=== PATIENT | female | born 1960 | race Caucasian/White ===

== ENCOUNTER 2016-10-12 17:56 | Inpatient (IN) | payer MEDICARE ==
[~2016-10-12] VITALS: Ht 165.1 cm; Wt 39.9 kg
[~2016-10-12 17:56] MED LIST: HYDROCODONE-APA1 TAB PO; KLONOPIN0.5 MG PO; ZANAFLEX4 MG PO
[2016-10-12 18:33] LABS: BASOPHILS 0.3 % (0.0-2.0); EOSINOPHILS 0.7 % (0-7); HEMATOCRIT 31.5 % (36.0-48.0); HEMOGLOBIN 10.2 g/dL (12-16); IMMATURE GRANULOCYTES 0.5 % (0-5); LYMPHOCYTES 14.7 % (15-50); MCH 28.1 pg (26.0-34.0); MCHC 32.4 g/dL (31.0-37.0); MCV 86.8 fL (80.0-100.0); MEAN PLATELET VOLUME 9.2 fL (7.4-10.4); MONOCYTES 13.6 % (2-11); NEUTROPHILS 70.2 % (40-80); RBC 3.63 10x6/uL (4.00-5.40); RDW 16.4 % (11.5-14.5); WBC 12.5 10x3/uL (4.8-10.8)
[2016-10-12 18:41] LABS: PLATELET COUNT 347 10x3/uL (130-400)
[2016-10-12 19:24] LABS: ALBUMIN 2.6 g/dL (3.4-5.0); BILIRUBIN - TOTAL 0.51 mg/dL (0.2-1.3); CALCIUM 8.1 mg/dL (8.5-10.1); CARBON DIOXIDE 26.7 mmol/L (21.0-32.0); CREATININE - SERUM 0.9 mg/dL (0.6-1.3); POTASSIUM - SERUM 3.7 mmol/L (3.5-5.1); PROTEIN - SERUM 6.8 g/dL (6.4-8.2)
[2016-10-12 21:53] LABS: APPEARANCE CLEAR (CLEAR); BILIRUBIN NEGATIVE (NEGATIVE); COLOR YELLOW (YELLOW); GLUCOSE NEGATIVE (NEGATIVE); KETONE NEGATIVE (NEGATIVE); LEUKOCYTE ESTERASE NEGATIVE (NEGATIVE); NITRITE NEGATIVE (NEGATIVE); PROTEIN NEGATIVE (NEGATIVE); UROBILINOGEN NORMAL (NORMAL)
--- NOTE | 2016-10-12 22:10 | NUR ---
RECEIVED PATIENT TO ROOM IN STABLE CONDITION. ALERT AND ORIENTED AND ABLE TO VOICE NEEDS. ORIENTED TO ROOM AND USE OF CALL LIGHT. FAMILY PRESENT. CALL LIGHT IN REACH
[2016-10-12 23:00] VITALS: BP 101/56
[2016-10-12 23:11] VITALS: BP 101/56; BMI 14.6
--- NOTE | 2016-10-12 23:37 | NUR ---
RN NOTE: ADMISSION ASSESSMENT COMPLETE. PT LYING IN SUPINE POSITION VISITING WITH FAMILY MEMBERS. IV IN RIGHT AC PATENT WITH D5 LR INFUSING AT 100 ML / HR. WILL MONITOR CLOSLEY FOR NEEDS.
[2016-10-13] VITALS (10 sets, daily range): BP systolic 91–114; BP diastolic 50–66; Ht 165.1 cm; Wt 39.9 kg
[2016-10-13 05:22] LABS: BASOPHILS 0.2 % (0.0-2.0); EOSINOPHILS 0.6 % (0-7); HEMATOCRIT 29.1 % (36.0-48.0); HEMOGLOBIN 9.3 g/dL (12-16); IMMATURE GRANULOCYTES 0.5 % (0-5); MCH 27.6 pg (26.0-34.0); MCV 86.4 fL (80.0-100.0); MEAN PLATELET VOLUME 9.4 fL (7.4-10.4); MONOCYTES 12.7 % (2-11); PLATELET COUNT 307 10x3/uL (130-400); RBC 3.37 10x6/uL (4.00-5.40); RDW 16.2 % (11.5-14.5); WBC 11.9 10x3/uL (4.8-10.8)
[2016-10-13 05:29] LABS: APTT 38.3 SECONDS (22.8-39.4); INR 1.39 (0.85-1.17)
[2016-10-13 05:39] LABS: ALKALINE PHOSPHATASE 151 U/L (46-116); CALCIUM 7.9 mg/dL (8.5-10.1); CARBON DIOXIDE 24.3 mmol/L (21.0-32.0); CHLORIDE - SERUM 103 mmol/L (98-107); CREATININE - SERUM 0.7 mg/dL (0.6-1.3); GLUCOSE 109 mg/dL (74-106); POTASSIUM - SERUM 3.8 mmol/L (3.5-5.1); PROTEIN - SERUM 6.3 g/dL (6.4-8.2); SODIUM 136 mmol/L (136-145); eGFR NON AFRICAN AMERICAN > 90 mL/min (90-120)
[2016-10-13 05:41] LABS: ALBUMIN 1.9 g/dL (3.4-5.0); ALT (SGPT) 27 U/L (10-68); CALC OSMOLALITY 270 mosm/kg (275-300); UREA NITROGEN 7 mg/dL (7-18)
--- NOTE | 2016-10-13 08:00 | NUR ---
AWAKE AND ALERT. ORIENTED X3. REPORTS VERY LITTLE RELIEF OF PAIN WITH MORPHINE. WILL CONTINUE TO MONITOR. LUNGS ARE CLEAR BILATERALLY, NO COUGH NOTED. SKIN IS INTACT WITHOUT REDNESS. UP TO BR WITH SBA. VOIDED CLEAR YELLOW URINE WITHOUT DIFFICULTY. SKIN CARE PER SELF. IV TO RIGHT AC IS PATENT WITHOUT REDNESS AT INSERTION SITE. VISITOR AT BEDSIDE.
--- NOTE | 2016-10-13 09:00 | NUR ---
DR. MICHELE HERE. NEW ORDERS RECEIVED. MORPHINE RESORT HOST PUT IN PLACE AT THIS TIME.. WILL MONITOR.
--- NOTE | 2016-10-13 10:00 | NUR ---
REPORTS PAIN IMPROVED SLIGHTLY WITH USE OF PODIATRIC PHYSICIAN.
--- NOTE | 2016-10-13 11:00 | NUR ---
CONTINUES TO REPORT IMPROVEMENT OF PAIN MANAGEMENT WITH USE OF PRINTED CIRCUIT BOARD DESIGNER.
--- NOTE | 2016-10-13 12:00 | NUR ---
OFF UNIT VIA BED TO SURGERY.
--- NOTE | 2016-10-13 12:37 | CN ---
PATIENT NAME:MILLER OLMOS MEDICAL RECORD: [id number] : 64 LOCATION:D.[facility] ADMIT DATE: 10/12/16 ACCOUNT: [id number] CONSULTING PHYSICIAN: TEE MICHELE MD REFERRING PHYSICIAN: GLORY TRAMMELL MD DATE OF CONSULTATION: 10/13/2016 Surgical Consultation SURGEON: Tee Michele MD. CHIEF COMPLAINT: Abdominal pain. HISTORY OF PRESENT ILLNESS: This is a 56-year-old woman who was transferred from the [facility] yesterday evening. The patient had gone to her primary care doctor complaining of 2 weeks of progressive ____ abdominal pain, fever and chills. The patient was found to have a large right lower quadrant abscess. The patient was transferred to our hospital. She was started on IV antibiotics and IV narcotics for pain control. The patient states that the belly pain started acutely 2 weeks ago; it has been constant since its onset and has got progressively worse. Pain is currently an 8/10. She described it is sharp and stabbing in nature. The patient has a history of multiple colonoscopies with previous polypectomy. She sees a dry house tender at [facility] for cirrhosis. The patient has a history of alcoholism in the past as well as hepatitis. She states that she has had to have her ultrasound paracentesis on 2 occasions. Denies any hematochezia or melena. Denies any nausea. Denies any episodes of vomiting or hematemesis. No dysuria. PAST MEDICAL HISTORY: Cirrhosis, prior alcoholism, irritable bowel syndrome. PAST SURGICAL HISTORY: Colonoscopy. ALLERGIES: No known drug allergies. HOME MEDICATIONS: Please see medical reconciliation. FAMILY HISTORY: No history of inflammatory bowel disease or colon cancer. SOCIAL HISTORY: She is currently an everyday smoker. She has been sober for the last several months or a year. REVIEW OF SYSTEMS: A 12-point review of system was obtained, pertinent positive and negative as per the HPI. PHYSICAL EXAMINATION: VITAL SIGNS: Temperature 99.7, heart rate 88, respirations 20, blood pressure 99/55, pulse ox 98%. GENERAL: This is a cachectic female in marked distress. EYES: Extraocular muscles are intact. EAR, NOSE AND THROAT: Mucous membranes are dry. Normal dentition. PSYCHIATRIC: She is alert and oriented times 3. CARDIOVASCULAR: Normal sinus rhythm. PULMONARY: She has decreased breath sounds bilaterally with wheezing. ABDOMEN: Firm, markedly tender to palpation. She has positive guarding, positive rebound. The patient with diffuse peritonitis on exam. CONSULT REPORT [id number] MILLER OLMOS SKIN: Warm and dry. EXTREMITIES: She is neurovascularly intact. No peripheral edema. NEUROLOGIC: She is a GCS of 15. No focal deficits. LABORATORY DATA: Reviewed, please see electronic medical record for full list of labs. IMAGING: CT of the abdomen and pelvis was personally reviewed by Dr. Arredondo, radiologist, the patient has a perforated abscess involving the terminal ileum as well as some adjacent fluid consistent with perforated terminal ileitis and radiologic findings consistent with a Crohn's disease. IMPRESSION: A 56-year-old female with perforated viscus, cirrhosis, and chronic anemia. PLAN: 1. OR today for urgent exploratory laparotomy, small bowel resection and drainage of intra-abdominal abscess. 2. IV narcotics for pain control. 3. Broad-spectrum IV antibiotics. 4. Blood cultures, urine cultures, we will obtain intraoperative fluid cultures. 5. Consult gastroenterology for Crohn's disease. 6. Consult infectious disease for cirrhosis, Crohn's disease and perforated intraabdominal abscess. 7. IV fluid resuscitation. 8. We will order hepatitis panel and a type and cross. TRANSINT:[id number] Voice Confirmation ID: [id number] DOCUMENT ID: [id number] TEE MICHELE MD at 1237 CC: [id number] DICTATION DATE: 10/13/16919 PERMACULTURE DESIGNER: 10/13/16 1027 ADM IN [place] [id number] [place] [address]
--- NOTE | 2016-10-13 13:45 | NUR ---
1230 CENTRAL LINE AND ARTERIAL LINE PLACED BY ANESTHESIA DR MARLENI REBOLLEDO WITH DR MICHELE ASSISTING ON CVL PLACEMENT, [facility].
--- NOTE | 2016-10-13 15:22 | NUR ---
XRAY PRESENT FOR CHEST XRAY
--- NOTE | 2016-10-13 16:20 | NUR ---
RECIEVED PT TO ROOM 2316. AWAKE AND ALERT. VOICES NO CO AT TIME. ASSESSMENT COMPLETE PER FLOW SHEET.
--- NOTE | 2016-10-13 16:37 | OP ---
PATIENT NAME: MILLER OLMOS MEDICAL RECORD: [id number] :64 LOCATION[facility] D.2316 ADMISSION DATE:10/12/16 SURGEON: TEE MICHELE MD DATE OF OPERATION: 10/13/2016 SURGEON: Tee Michele MD. PREOPERATIVE DIAGNOSES: 1. Perforated Crohn's disease. 2. Intra-abdominal abscess. 3. Cirrhosis. 4. Nicotine dependence. 5. Chronic anemia. POSTOPERATIVE DIAGNOSES: 1. Perforated Crohn's disease. 2. Intra-abdominal abscess. 3. Cirrhosis. 4. Nicotine dependence. 5. Chronic anemia. PROCEDURES PERFORMED: 1. Exploratory laparotomy. 2. Drainage of intraabdominal abscess. 3. Ileocecectomy. ANESTHESIA: General. COMPLICATIONS: None. SPECIMENS: Terminal ileum and cecum. Case was grossly contaminated. ESTIMATED BLOOD LOSS: 400 cc. OPERATIVE COURSE: After consent was obtained, the patient was taken to the operating room and placed in supine position on the operating table. Next, general anesthesia was given via endotracheal intubation. Thereafter, a timeout was taken to confirm the correct patient and procedure. The abdomen was prepped and draped in typical sterile fashion. An Ioban dressing was placed. A midline abdominal incision was made with the 10-blade scalpel. Once the skin was incised, the subcutaneous tissue was incised with electrocautery. Once the fascia was encountered, the fascia was incised using electrocautery. The peritoneum was grasped with Pooja clamps times 2 and cut with Metzenbaum scissors. Once there was visual inspection of the intraabdominal cavity the remaining portion of the incision was opened with electrocautery. An Clayton wound retractor was placed. There was significant amount of ascitic fluid in the abdomen. The terminal ileum, cecum and sigmoid colon were densely adherent along the right lateral pelvic side wall. The bowel was slowly worked away from the pelvic side wall. Once this was done, a large abscess was encountered with approximately 100 cc of purulent fluid. This fluid was sent for anaerobic and aerobic culture at this time. Once the abscess cavity was drained, the abdomen was copiously irrigated and suctioned, healthy, approximately 15 cm and 20 cm of distal ileum with the gross appearance of Crohn's disease and creeping fat and induration of the small bowel. The terminal ileum could not be identified secondly from the cecum secondary to the inflammation it was one large indurated OPERATIVE REPORT [id number] MILLER OLMOS mass at approximately 25 cm from the terminal ileum. The small bowel was transected. The mesenteric window was created. The hepatic flexure was mobilized. The ascending colon was mobilized off the white line of Toldt. The mid ascending colon, a healthy colon was identified. The mesenteric window was created. The ascending colon was transected with the ROBERTO linear stapler. The mesentery was then taken with the Harmonic scalpel. The specimen was passed in the field and sent for permanent pathology. At this time, the abdomen was again copiously irrigated and suctioned and sxkm-ep-[id number] anastomosis created between the terminal ileum and the ascending colon, this was accomplished, and a common enterotomy was created with a linear cutting stapler. The common enterotomy was closed with a second firing with a linear cutting stapler and the staple line was then imbricated with a 2-0 Stratafix suture. The mesenteric defect was closed with interrupted 3-0 Vicryl suture. The ileocolonic anastomosis was then placed into the right upper quadrant ____ again irrigated and suctioned. Careful attention was paid to hemostasis. The small bowel was run from the terminal ileum to the anastomosis. There was no evidence of bowel injury. The colon was run. The sigmoid colon was unable to be mobilized out of the pelvis. The planes were markedly indurated and unidentifiable. A drain was placed into the pelvis at this time alongside the sigmoid colon. Next, the abdomen was closed with #1 looped PDS. Skin was closed with allyssa. At the end of the case, all needle and instrument counts were correct. No complications occurred. The patient was extubated and transferred to the PACU in stable condition. TRANSINT:[id number] Voice Confirmation ID: [id number] DOCUMENT ID: [id number] TEE MICHELE MD at 1637 CC: [id number] DICTATION DATE: 10/13/16 1511 DEPUTY CORONER: 10/13/16 1628 ADM IN [facility] [address] [place] [address]
[2016-10-13 17:16] LABS: WBC 27.3 10x3/uL (4.8-10.8)
[2016-10-13 17:17] LABS: HEMATOCRIT 27.8 % (36.0-48.0); HEMOGLOBIN 8.8 g/dL (12-16); MCH 27.5 pg (26.0-34.0); MCHC 31.7 g/dL (31.0-37.0); MCV 86.9 fL (80.0-100.0); MEAN PLATELET VOLUME 9.4 fL (7.4-10.4); PLATELET COUNT 394 10x3/uL (130-400); RDW 16.3 % (11.5-14.5)
[2016-10-13 17:27] LABS: CALC OSMOLALITY 275 mosm/kg (275-300); CALCIUM 7.4 mg/dL (8.5-10.1); CHLORIDE - SERUM 107 mmol/L (98-107); CREATININE - SERUM 0.6 mg/dL (0.6-1.3); GLUCOSE 132 mg/dL (74-106); POTASSIUM - SERUM 3.8 mmol/L (3.5-5.1); SODIUM 138 mmol/L (136-145); UREA NITROGEN 6 mg/dL (7-18); eGFR NON AFRICAN AMERICAN > 90 mL/min (90-120)
[2016-10-13 17:49] LABS: LYMPHOCYTES 6 % (15-50); MONOCYTES 2 % (2-11); NEUTROPHILS 81 % (40-80); PLATELET ESTIMATE NORMAL
--- NOTE | 2016-10-13 18:00 | NUR ---
H/H CALLED TO DR MICHELE. 2 UNITS OF PRBCS ORDERED.
--- NOTE | 2016-10-13 19:30 | NUR ---
REPORT RECVD. CARE ASSUMED. INITIAL ASSMNT COMPLETED. SEE FLOWSHEET FOR ALL FINDINGS. AWAKE AND AOX4. RESP UNLABORED. LUNGS WITH SCANT EXP WHEEZES TO UPER LOBES. DIM IN BASES. SPO2 96% ON 02 AT [address] ON THE MONITOR. PULSES PALP. LEFT RADIAL A-LINE ZEROED AND BALANCED WITH GOOD WAVE FORM SEEN. CVP LINE ZEROED AND BALANCED. SCDS ON. TEMP 99.5 TEMPORAL. C/O FEELING COLD. SEVERAL BLANKETS IN USE. ABD INCISIONAL DRESSINGS CDI. NGT TO RIGHT NARE PATENT AND SECURED TO LIWS. F/C PATENT WITH CONCENTRATED UOP. REPOSITIONED FOR COMFORT. MATERIALS PLANNING MANAGER MORPHINE PROVIDING PAIN CONTROL. HOB UP. C/L IN REACH. CONT CURRENT POC.
--- NOTE | 2016-10-13 20:15 | NUR ---
PRBC INITIATED PER ORDERS. VSS. CONT TO MONITOR.
--- NOTE | 2016-10-13 21:22 | NUR ---
FAMILY AT BEDSIDE. UPDATE GIVEN. VSS. PRBC INFUSING NO ADV REACTION SEEN. MINIMAL ASSIST TO REPOSITION. HOB UP. C/L IN REACH. CONT CURRENT POC.
--- NOTE | 2016-10-13 23:15 | NUR ---
REASESSMENT COMPLETED. SEE FLOWSHEET FOR ALL FINDINGS. REMAINS AOX4. VSS. RESP EVEN AND UNLABORED. SPO2 97% ON RA. LUNGS WITH EXP WHEEZES TO UPPER LOBES. DIM IN BASES. ST ON THE MONITOR. A LINE INTACT TO LEFT RADIAL. SYS B/P WITHIN PARAMETERS. PULSES PALP. SCDS ON. AFEBRILE. NGT TO LIWS. ABDOMINAL INCISIONAL DRESSING CDI. RLQ EDGAR DRAIN WITH SEROSANG DRNG COMPRESSED. BS SCANT. F/C PATENT WITH CONCENTRATED UOP SEEN. HOB UP. C/L IN REACH. CONT CURRENT POC.
--- NOTE | 2016-10-13 23:30 | NUR ---
2ND UNIT PRBC INITIATED. NO S.S OF ADV REACTION. VSS. CONT TO MONITOR.
[2016-10-14] VITALS (25 sets, daily range): BP systolic 91–124; BP diastolic 53–80
--- NOTE | 2016-10-14 01:19 | NUR ---
C/O NAUSEA. PRN ZOFRAN GIVEN. NGT PLACEMENT CHECKED PER SMALL AIR BOLUS. NO EMESIS. CONT TO MONITOR.
--- NOTE | 2016-10-14 02:00 | NUR ---
PRBC INFUSED WITH NO ADV REACTION. NO NEEDS VOICED. VSS. CONT CURRENT POC.
--- NOTE | 2016-10-14 03:30 | NUR ---
REASSESSMENT COMPLETED. SEE FLOWSHEET FOR ALL FINDINGS. RESTING WITH NO DISTRESS. VSS. NO SIG CHANGES. ASSISTED TO REPOSITION. NGT INTACT. ABDOMINAL DRESSING INTACT. ROOF CEMENT AND PAINT MAKER HELPER MORPHINE PROVIDING PAIN CONTROL. CONT CURRENT POC.
[2016-10-14 04:01] LABS: BASOPHILS 0 % (0.0-2.0); EOSINOPHILS 0 % (0-7); HEMATOCRIT 33.3 % (36.0-48.0); IMMATURE GRANULOCYTES 0.7 % (0-5); LYMPHOCYTES 4.6 % (15-50); MCH 28.9 pg (26.0-34.0); MCV 87.4 fL (80.0-100.0); MEAN PLATELET VOLUME 9.4 fL (7.4-10.4); MONOCYTES 6.9 % (2-11); NEUTROPHILS 87.8 % (40-80); PLATELET COUNT 254 10x3/uL (130-400); RBC 3.81 10x6/uL (4.00-5.40); RDW 15.2 % (11.5-14.5); WBC 20.8 10x3/uL (4.8-10.8)
[2016-10-14 04:27] LABS: ALBUMIN 1.5 g/dL (3.4-5.0); ALKALINE PHOSPHATASE 102 U/L (46-116); BILIRUBIN - TOTAL 1.13 mg/dL (0.2-1.3); CALCIUM 7.4 mg/dL (8.5-10.1); CARBON DIOXIDE 22.9 mmol/L (21.0-32.0); CHLORIDE - SERUM 107 mmol/L (98-107); CREATININE - SERUM 0.7 mg/dL (0.6-1.3); POTASSIUM - SERUM 4.1 mmol/L (3.5-5.1); PROTEIN - SERUM 4.9 g/dL (6.4-8.2); SODIUM 138 mmol/L (136-145); eGFR NON AFRICAN AMERICAN > 90 mL/min (90-120)
[2016-10-14 04:28] LABS: ALT (SGPT) 18 U/L (10-68); CALC OSMOLALITY 278 mosm/kg (275-300); GLUCOSE 180 mg/dL (74-106); UREA NITROGEN 8 mg/dL (7-18)
--- NOTE | 2016-10-14 05:00 | NUR ---
RESTING NO DISTRESS. VSS. NO REPLACEMENTS NEEDED PER ELECTROLYTE PROTOCOL. CONT CURRENT POC.
--- NOTE | 2016-10-14 09:31 | NUR ---
Is the patient Alert and Oriented? Yes 0 * How many steps to enter\exit or inside your home? 5 0 * PCP DR. CRAWFORD IN [place] 0 * Pharmacy [facility] IN [place] 0 * Preadmission Environment Home Alone 0 * ADLs Independent 0 * Equipment None 0 * List name and contact numbers for known caregivers / representatives who currently or will assist patient after discharge: SISTER: CAESAR KHAN [phone] FRIEND: FRANCIS LARSON (H) [phone] (C) [phone] 0 * Community resources currently utilized None 0 * Additional services required to return to the preadmission environment? No 0 * Can the patient safely return to the preadmission environment? Yes 0 * Has this patient been hospitalized within the prior 30 days at any hospital? No PATIENT STATES SHE LIVES ALONE AND IS INDEPENDENT IN ALL ADL'S. SHE PLANS TO RETURN HOME AND HER FRIEND, FRANCIS LARSON. HER PCP IS DR. CRAWFORD IN [place]. SHE GETS HER MEDS FROM [facility] IN [place]. SHE DENIES USE OF ANY EQUIPMENT AND NEVER HAD HOME HEALTH. PATIENT HAS 5 STEPS WITH RAILS TO ENTER HER HOME. NO D/C NEEDS AT THIS TIME. CM TO FOLLOW.
--- NOTE | 2016-10-14 09:44 | NUR ---
NUTRITION MONITORING & EVAL PT NOW IN ICU S/P SURGERY. NPO WITH NO CURRENT NUTRITION SUPPORT. WILL AWAIT MD DECISION ON NUTRITIONAL OPTIONS. RD FOLLOWING
[2016-10-14 10:17] LABS: HEPATITIS C ANTIBODY >11.0 (0.0-0.9)
--- NOTE | 2016-10-14 23:30 | NUR ---
1929-REPORT RECVD. CARE ASSUMED. INITIAL ASSMNT COMPLETED. SEE FLOWSHEET FOR FINDINGS. AWAKE AND AOX4. RESP UNLABORED. LUNGS WITH SCANT EXP WHEEZES TO UPPER LOBES. DIM IN BASES. SPO2 96% ON RA. OCC IDEA MAN COUGH. TEACHING R/T INCENTIVE AND COUGH/DB. ST ON THE MONITOR. PULSES PALP X4. SCDS ON. AFEBRILE. ABD INCISIONAL DRESSINGS CDI. NGT TO RIGHT NARE PATENT AND SECURED TO LIWS. F/C PATENT WITH CONCENTRATED UOP. REPOSITIONED FOR COMFORT. RN TELEPHONE TRIAGE MORPHINE PROVIDING PAIN CONTROL. HOB UP. C/L IN REACH. CONT CURRENT POC. 2100- HS MEDS GIVEN. NO NEEDS VOICED. RN TELEPHONE TRIAGE MORPHINE PROVIDING PAIN CONTROL. ASSISTED TO REPOSITION. VSS. HOB UP. C/L IN REACH. CONT CURRENT POC. 2329- REASSESSMENT COMPLETED. SEE FLOWSHEET FOR ALL FINDINGS. AWAKE AND AOX4. RESP UNLABORED. LUNGS WITH SCANT EXP WHEEZES TO UPPER LOBES. DIM IN BASES. SPO2 96% ON RA. OCC IDEA MAN COUGH. TEACHING R/T INCENTIVE AND COUGH/DB. ST ON THE MONITOR. PULSES PALP X4. SCDS ON. AFEBRILE. ABD INCISIONAL DRESSINGS CDI. NGT TO RIGHT NARE PATENT AND SECURED TO LIWS. F/C PATENT WITH CONCENTRATED UOP. REPOSITIONED FOR COMFORT. RN TELEPHONE TRIAGE MORPHINE PROVIDING PAIN CONTROL. HOB UP. C/L IN REACH. CONT CURRENT POC.
[2016-10-15] VITALS (13 sets, daily range): BP systolic 93–116; BP diastolic 46–74
--- NOTE | 2016-10-15 01:28 | NUR ---
RESTING WITH NO DISTRESS. VSS. NO NEEDS VOICED. HOB UP. C/L IN REACH. CONT CURRENT POC.
--- NOTE | 2016-10-15 03:30 | NUR ---
REASSESSMENT COMPLETED. SEE FLOWSHEET FOR ALL FINDINGS. AWAKE AND AOX4. RESP UNLABORED. LUNGS WITH SCANT EXP WHEEZES TO UPPER LOBES. DIM IN BASES. SPO2 96% ON RA. OCC CASH ON DELIVERY CLERK COUGH. TEACHING R/T INCENTIVE AND COUGH/DB. ST ON THE MONITOR. PULSES PALP X4. SCDS ON. AFEBRILE. ABD INCISIONAL DRESSINGS CDI. NGT TO RIGHT NARE PATENT AND SECURED TO LIWS. F/C PATENT WITH CONCENTRATED UOP. REPOSITIONED FO COMFORT. SAIL REPAIR PERSON MORPHINE PROVIDING PAIN CONTROL. HOB UP. C/L IN REACH. CONT CURRENT POC.
[2016-10-15 04:01] LABS: BASOPHILS 0.1 % (0.0-2.0); EOSINOPHILS 0.6 % (0-7); HEMATOCRIT 28.7 % (36.0-48.0); HEMOGLOBIN 9.4 g/dL (12-16); IMMATURE GRANULOCYTES 0.6 % (0-5); LYMPHOCYTES 9.1 % (15-50); MCH 28.4 pg (26.0-34.0); MCHC 32.8 g/dL (31.0-37.0); MCV 86.7 fL (80.0-100.0); MEAN PLATELET VOLUME 9.2 fL (7.4-10.4); MONOCYTES 9.4 % (2-11); NEUTROPHILS 80.2 % (40-80); PLATELET COUNT 230 10x3/uL (130-400); RBC 3.31 10x6/uL (4.00-5.40); RDW 15.7 % (11.5-14.5); WBC 15.7 10x3/uL (4.8-10.8)
[2016-10-15 04:21] LABS: ALBUMIN 1.4 g/dL (3.4-5.0); ALKALINE PHOSPHATASE 81 U/L (46-116); ALT (SGPT) 16 U/L (10-68); BILIRUBIN - TOTAL 0.48 mg/dL (0.2-1.3); CALC OSMOLALITY 276 mosm/kg (275-300); CALCIUM 7.5 mg/dL (8.5-10.1); CARBON DIOXIDE 26.4 mmol/L (21.0-32.0); CHLORIDE - SERUM 105 mmol/L (98-107); CREATININE - SERUM 0.6 mg/dL (0.6-1.3); GLUCOSE 149 mg/dL (74-106); PROTEIN - SERUM 4.6 g/dL (6.4-8.2); SODIUM 138 mmol/L (136-145); UREA NITROGEN 7 mg/dL (7-18); eGFR NON AFRICAN AMERICAN > 90 mL/min (90-120)
[2016-10-15 04:24] LABS: POTASSIUM - SERUM 3.4 mmol/L (3.5-5.1)
--- NOTE | 2016-10-15 05:26 | NUR ---
NILO PRINGLE INITIATED PER ELECTROLYTE PROTOCOL.
--- NOTE | 2016-10-15 07:00 | NUR ---
REC'ED REPORT FROM OUTGOING RN - PT AA&O X4 - PT WATCHING TELEVISION LYING SUPINE IN BED. PRINTED CIRCUIT BOARDS LAMINATOR PUCK IN REACH
--- NOTE | 2016-10-15 07:30 | NUR ---
ASSESSMENT COMPLETE MEDIATIONS GIVEN - 2OF 2 POTASSIUM RID ER ADMINSTERED.
--- NOTE | 2016-10-15 08:00 | NUR ---
DR. MICHELE AT [facility] FOR ASSESSMENT - ORDERS TO D/C SAMREEN, D/C NG TUBE, TRANSFER TO THE FLOOR, CONTINUE PLAN OF CARE.
--- NOTE | 2016-10-15 09:15 | NUR ---
DR. TRAMMELL AT BEDSIDE - AGREED TO TRANSFER PT TO FLOOR AND TO HOLD ON ICE CHIPS UNTIL THIS PM.
--- NOTE | 2016-10-15 10:02 | NUR ---
PT UP TO BSC (200) URINE OUTPUT - BATHED/SHAMPOOED HAIR - CANGED BED LINENS AND BED CLOTHERS. PT UP IN CHAIR WATCHING TELEVISION -
--- NOTE | 2016-10-15 13:06 | NUR ---
REPORT REC'D FROM EMRE LUCIO, IN ICU. ROOM READY AND AWAITING PT ARRIVAL.
--- NOTE | 2016-10-15 13:06 | NUR ---
GAVE REPORT TO EMRE NEVES - TRANSFER PT WITH ALL BELONGING VIA W/C - PHYICAL THERAPY ASSIST.
--- NOTE | 2016-10-15 13:59 | NUR ---
PT REC'D TO ROOM FROM ICU. SITTING UP ON SIDE OF BED WITH VISITOR IN ROOM. AAOX4. RATING CURRENT PAIN IN ABD 02/11. MORPHINE SMELTER CHARGER INFUSING. DRESSING TO R SC CLEAN, DRY, AND INTACT. TELEMETRY STICKERS REMOVED. MIDLINE ABD INCISION HAS 18 PERICO. SITE APPROXIMATE AND FREE OF S/SX OF INFECTION. EDGAR DRAIN TO RLQ EMPTIED OF 150CC'S OF SEROSANGUINOUS FLUID. DRAIN COMPRESSED AND PINNED TO GOWN. DRESSING TO DRAIN SITE HAS OLD DRY BLOOD. WILL CONTINUE TO MONITOR FOR CHANGES. SCD'S ON. BED LOW, CALL LIGHT IN REACH, DENIES NEEDS, WILL CPOC.
--- NOTE | 2016-10-15 16:48 | NUR ---
LAB IN ROOM FOR POTASSIUM REDRAW. LINE FLUSHED WITH 10CC'S OF NS, KERRIE BACK 10CC'S OF BLOOD TO WASTE, AND KERRIE BACK 5 MORE FOR LAB. FLUSHED WITH ANOTHER 10CC'S OF NS. RECONNECTED TO IV LINES. BED LOW, CALL LIGHT IN REACH, DENIES NEEDS, CPOC.
--- NOTE | 2016-10-15 22:10 | NUR ---
REC'D. IN BED WATCHING TV.RATING ABD. PAIN 7 09/05.ASKED IF USING BUTTON FOR PAIN.STATES WHAT BUTTON EXPLAINED THIS ONE LYING ON YOUR CHEST.PUSHED BY NURSE.EMPTYIED 100CC FROM EDGAR DRAIN. WILL CONTINUE TO MONITOR FOR ANY CHGES IN SURGICAL STATUS AND FOLLOW CURRENT PLAN OF CARE.
[2016-10-16 00:42] VITALS: BP 106/51
--- NOTE | 2016-10-16 04:22 | NUR ---
PATIENT ALERT AND ORIENTED RESTING IN SEMI-FOWLERS POSITION. PATIENT DENIES NEEDS AT THIS TIME. BED IN LOWEST POSITION AND CALL LIGHT WITHIN REACH.
[2016-10-16 06:08] VITALS: BP 104/57
--- NOTE | 2016-10-16 07:00 | NUR ---
PT REC'D FROM KEVON FLORES. RESTING IN BED WATCHING TV. AAOX4. DRESSING TO R SC CLEAN, DRY, AND INTACT. BOWEL SOUNDS HYPOACTIVE. MIDLINE ABD INCISION FREE OF S/SX OF INFECTION. 18 PERICO TO SITE. APPROXIMATE. EDGAR DRAIN TO RLQ EMPTIED OF 100CC'S OF SEROSANGUINOUS FLUID. DRESSING TO SITE HAS OLD DRY BLOOD. WILL CONTINUE TO MONITOR FOR DRAINAGE. RATING CURRENT PAIN IN ABD 5/10. REMINDED PT OF MUSIC VIDEO PRODUCER DEVICE AND HOW TO USE IT. BED LOW, CALL LIGHT IN REACH, DENIES NEEDS, CPOC.
[2016-10-16 07:20] LABS: BASOPHILS 0.1 % (0.0-2.0); EOSINOPHILS 2.7 % (0-7); HEMATOCRIT 28.2 % (36.0-48.0); HEMOGLOBIN 9.1 g/dL (12-16); IMMATURE GRANULOCYTES 0.5 % (0-5); LYMPHOCYTES 9.2 % (15-50); MCH 28.3 pg (26.0-34.0); MCHC 32.3 g/dL (31.0-37.0); MCV 87.9 fL (80.0-100.0); MEAN PLATELET VOLUME 9.2 fL (7.4-10.4); MONOCYTES 9.3 % (2-11); NEUTROPHILS 78.2 % (40-80); PLATELET COUNT 237 10x3/uL (130-400); RBC 3.21 10x6/uL (4.00-5.40); RDW 16.1 % (11.5-14.5)
[2016-10-16 07:22] LABS: WBC 9.7 10x3/uL (4.8-10.8)
[2016-10-16 07:43] LABS: ALBUMIN 1.2 g/dL (3.4-5.0); ALKALINE PHOSPHATASE 69 U/L (46-116); ALT (SGPT) 17 U/L (10-68); BILIRUBIN - TOTAL 0.25 mg/dL (0.2-1.3); CALCIUM 7.6 mg/dL (8.5-10.1); CARBON DIOXIDE 27.2 mmol/L (21.0-32.0); CHLORIDE - SERUM 105 mmol/L (98-107); CREATININE - SERUM 0.6 mg/dL (0.6-1.3); GLUCOSE 124 mg/dL (74-106); POTASSIUM - SERUM 3.5 mmol/L (3.5-5.1); PROTEIN - SERUM 4.3 g/dL (6.4-8.2); SODIUM 138 mmol/L (136-145); eGFR NON AFRICAN AMERICAN > 90 mL/min (90-120)
[2016-10-16 07:45] LABS: CALC OSMOLALITY 273 mosm/kg (275-300); UREA NITROGEN 4 mg/dL (7-18)
--- NOTE | 2016-10-16 08:15 | NUR ---
CURRENT POTASSIUM OF 3.5. FIRST BAG OF IV POTASSIUM STARTED. WILL CONTINUE TO MONITOR AND REASSESS.
[2016-10-16 08:43] VITALS: BP 96/55
--- NOTE | 2016-10-16 09:30 | NUR ---
2ND BAG OF IV POTASSIUM STARTED. PT RESTING IN BED COMFORTABLY. NO COMPLAINTS BED LOW, CALL LIGHT IN REACH. POTASSIUM REDRAW ENTERED IN FOR 1200.
--- NOTE | 2016-10-16 09:50 | NUR ---
MORNING MEDS PASSED AT THIS TIME. PT RESTING IN BED WATCHING TV. RATING CURRENT PAIN IN ABD 12/12. BED LOW, CALL LIGHT IN REACH, DENIES NEEDS, CPOC.
--- NOTE | 2016-10-16 10:07 | NUR ---
DR. MICHELE IN ROOM DISCUSSING POC WITH PT. RESTING IN BED. COMMUNITY CULTURAL DEVELOPMENT OFFICER SYRINGE CHANGED. BED LOW, CALL LIGHT IN REACH, DENIES NEEDS. 50CC'S OF SEROSANGUINOUS FLUID DRAINED FROM EDGAR DRAIN. CPOC.
--- NOTE | 2016-10-16 10:28 | NUR ---
PT UP WALKING WITH PHYSICAL THERAPY. WALKED APPROXIMATELY 150FT. NOTIFIED BY PHYSICAL THERAPIST MARCIE, THAT SHE IS CLEARED BY PHYSICAL THERAPY.
[2016-10-16 12:30] VITALS: BP 94/47
--- NOTE | 2016-10-16 15:33 | NUR ---
PATIENT'S PRIMARY NURSE IN ROOM SCANNING MEDS. PATIENT IS LAYING IN BED. RESPIRATIONS ARE EVEN AND UNLABORED ON ROOM AIR. NO SIGNS OF DISTRESS NOTED. FAMILY IN ROOM. ALL DENY NEEDS AT THIS TIME.
[2016-10-16 16:43] VITALS: BP 104/60
[2016-10-16 21:35] VITALS: BP 101/57
[2016-10-17 01:00] VITALS: BP 101/76
--- NOTE | 2016-10-17 02:00 | NUR ---
PT IN BED WITH NO NEEDS. RIGHT SUBCLAVIAN PATENT AND FLUIDS ARE RUNNING PER ORDER. MIDLINE INCISION C/D/I. SCD'S ON. MARKETING DATABASE CONSULTANT IN PLACE FOR PAIN CONTROL. SIDE RAILS ARE UP X 2. BED IS LOW. CALL LIGHT IN REACH.
[2016-10-17 04:00] VITALS: BP 103/63
--- NOTE | 2016-10-17 06:12 | NUR ---
PATIENT RESTING WITH EYES CLOSED. NO VISIBLE SIGNS OF DISTRESS. BED IN LOWEST POSITION AND CALL LIGHT WITHIN REACH.
[2016-10-17 06:58] LABS: BASOPHILS 0.1 % (0.0-2.0); EOSINOPHILS 4.1 % (0-7); HEMATOCRIT 29.6 % (36.0-48.0); HEMOGLOBIN 9.5 g/dL (12-16); IMMATURE GRANULOCYTES 0.6 % (0-5); MCH 28.4 pg (26.0-34.0); MCHC 32.1 g/dL (31.0-37.0); MCV 88.4 fL (80.0-100.0); MEAN PLATELET VOLUME 9.5 fL (7.4-10.4); MONOCYTES 8.7 % (2-11); NEUTROPHILS 77.5 % (40-80); PLATELET COUNT 254 10x3/uL (130-400); RBC 3.35 10x6/uL (4.00-5.40); RDW 16.2 % (11.5-14.5)
--- NOTE | 2016-10-17 07:25 | NUR ---
PATIENT IS RESTING QUIETLY WITH EYES CLOSED. RESPIRATIONS DEEP AND EVEN. NO DISTRESS/NEEDS NTED. SCD'S ARE ON AND PUMPING.
[2016-10-17 07:27] LABS: ALBUMIN 1.3 g/dL (3.4-5.0); ALKALINE PHOSPHATASE 70 U/L (46-116); ALT (SGPT) 18 U/L (10-68); BILIRUBIN - TOTAL 0.33 mg/dL (0.2-1.3); CALC OSMOLALITY 273 mosm/kg (275-300); CALCIUM 7.8 mg/dL (8.5-10.1); CARBON DIOXIDE 27.1 mmol/L (21.0-32.0); CHLORIDE - SERUM 106 mmol/L (98-107); CREATININE - SERUM 0.7 mg/dL (0.6-1.3); GLUCOSE 113 mg/dL (74-106); POTASSIUM - SERUM 3.9 mmol/L (3.5-5.1); PROTEIN - SERUM 4.7 g/dL (6.4-8.2); SODIUM 138 mmol/L (136-145); UREA NITROGEN 3 mg/dL (7-18); eGFR NON AFRICAN AMERICAN > 90 mL/min (90-120)
[2016-10-17 08:29] VITALS: BP 120/64
--- NOTE | 2016-10-17 10:31 | NUR ---
DR. MICHELE PAGED TO REQUEST ADVANCEMENT OF DIET.
--- NOTE | 2016-10-17 10:53 | NUR ---
65CC OF DRAINAGE REMOVED FROM EDGAR DRAIN. IT RESEMBLES PINK TINGED URINE AND IS WITHOUT FOUL ODOR. DRESSING TO SITE CHANGED. INSERTION SITE IS WITHOUT REDNESS OR SWELLING.
[2016-10-17 12:29] VITALS: BP 97/60
--- NOTE | 2016-10-17 12:34 | NUR ---
NUTRITION MONITORING & EVAL CHART REVIEWED, PT VISIT. DIET ADVANCED TO FULL LIQUID. WILL PROVIDE SUSHIL ENSURE WITH BREAKFAST PER PT REQUEST. RD FOLLOWING
--- NOTE | 2016-10-17 12:51 | NUR ---
ASSISTED THE PATIENT TO REPOSITION FOR COMFORT. SHE IS IN SEMIFOWLERS WITH HER FULL LIQUID DIET BEFORE HER. IV ABT BEGUN TO THE RIGHT SUBCLAVIAN IV ACCESS. SHE STATES THAT THE REPOSITION "TOOK ALOT OUT OF ME". SHE HAS HER CALL LIGHT IN HER LAP. SHE WAS TALKING TO HER FATHER ON THE PHONE WHEN I ENTERED AND WAS RESTING WHEN I LEFT. SHE STATES THAT SHE IS JUST GOING TO REST A BIT AND EAT HER LUNCH A LITTLE AT A TIME.
--- NOTE | 2016-10-17 15:32 | NUR ---
PATIENT AND HER MOTHER QUESTIONED THE DECISION TO SIGN OFF BY PHYSICAL THERAPY. AFTER REVIEWING THEIR NOTES I CALLED THE DEPARTMENT. OG CAME UP TO REVIEW AND REASSESS THE PATIENT. THE DECISION TO SIGN OFF WAS CONFIRMED AND DISCUSSED WITH THEM. THEY ARE IN AGREEMENT.
[2016-10-17 16:57] VITALS: BP 161/92
--- NOTE | 2016-10-17 17:40 | NUR ---
EDGAR DRAIN REMOVED AFTER DRAINING 100CC FROM THE BULB. THE INSERTION SITE IS WITHOUT REDNESS, SWELLING.
[2016-10-17 19:00] VITALS: BP 107/63
--- NOTE | 2016-10-17 22:53 | NUR ---
DR. MICHELE CALLED IN REGUARDS TO SHOE SPRAYER MORPHINE PAIN MED.EXPIRING.NEEDING RENEWAL ORDER.NEW ORDER REC'D.WILL CONTINUE TO MONITOR FOR ANY CHGES AND FOLLOW CURRENT PLAN OF CARE
[2016-10-18] VITALS: BP 121/71
[2016-10-18 04:00] VITALS: BP 113/76
[2016-10-18 07:17] LABS: BASOPHILS 0.1 % (0.0-2.0); EOSINOPHILS 4.6 % (0-7); HEMATOCRIT 34.5 % (36.0-48.0); HEMOGLOBIN 11.1 g/dL (12-16); IMMATURE GRANULOCYTES 0.7 % (0-5); LYMPHOCYTES 10.2 % (15-50); MCH 28.5 pg (26.0-34.0); MCHC 32.2 g/dL (31.0-37.0); MCV 88.7 fL (80.0-100.0); MEAN PLATELET VOLUME 9.2 fL (7.4-10.4); MONOCYTES 9.7 % (2-11); NEUTROPHILS 74.7 % (40-80); PLATELET COUNT 304 10x3/uL (130-400); RBC 3.89 10x6/uL (4.00-5.40); RDW 16.5 % (11.5-14.5)
[2016-10-18 07:30] LABS: WBC 13.7 10x3/uL (4.8-10.8)
[2016-10-18 07:37] LABS: ALBUMIN 1.4 g/dL (3.4-5.0); ALKALINE PHOSPHATASE 68 U/L (46-116); ALT (SGPT) 20 U/L (10-68); CALC OSMOLALITY 271 mosm/kg (275-300); CARBON DIOXIDE 26.5 mmol/L (21.0-32.0); CHLORIDE - SERUM 104 mmol/L (98-107); CREATININE - SERUM 0.7 mg/dL (0.6-1.3); GLUCOSE 125 mg/dL (74-106); POTASSIUM - SERUM 4.2 mmol/L (3.5-5.1); PROTEIN - SERUM 5.1 g/dL (6.4-8.2); SODIUM 137 mmol/L (136-145); UREA NITROGEN 3 mg/dL (7-18); eGFR NON AFRICAN AMERICAN > 90 mL/min (90-120)
[2016-10-18 08:05] VITALS: BP 131/77
[2016-10-18 11:51] VITALS: BP 103/65
--- NOTE | 2016-10-18 13:14 | NUR ---
NUTRITION MONITORING & EVAL CHART REVIEWED. PT VISIT. CONTINUES POOR PO INTAKE. NO NEW WT TO ASSESS. WHEN ASKED IF APPETITE AND PO INTAKE WERE IMPROVING, SHE STATED "IT'S UNDER CONSTRUCTION". WILL CONTINUE TO PROVIDE DIET, ENSURE. ENCOURAGE PO INTAKE. RD FOLLOWING
[2016-10-18 15:43] VITALS: BP 125/64
--- NOTE | 2016-10-18 18:42 | NUR ---
PATIENT RESTING IN HER BED IN HIGH FOWLERS AFTER BEING UP TO THE BEDSIDE COMMODE. SHE PASSED ABOUT A CUP OF BABY FOOD CONSISTENCY BROWN BM. SHE IS VERY PROUD OF HERSELF. SHE HAS AMBULATED AROUND THE UNIT INDEPENDENTLY ONCE TODAY. ENCOURAGED HER TO MAKE ANOTHER LAP AROUND THE UNIT TONIGHT BEFORE GOING TO BED. HER INCISION REMAIN WELL APPROXIMATED AND WITHOUT REDNESS OR SIGNS OF INFECTION.
--- NOTE | 2016-10-18 19:55 | NUR ---
PATIENT HAS GUESTS AT BEDSIDE AND DENIES NEEDS AT THIS TIME. PATIENT COMPLAINED OF IV BEEPING AND NO ONE COMING. I ASSURED THE PATIENT THAT HER CALL LIGHT WAS NOT ON AND ENCOURAGED HER TO PRESS THE "RED BUTTON" ON HER REMOTE IF SHE NEEDED ASSISTANCE AGAIN. PATIENT'S BED IS IN LOWEST POSITION AND CALL LIGHT WITHIN REACH.
[2016-10-18 21:24] VITALS: BP 113/66
[2016-10-19 00:24] VITALS: BP 113/64; BP 151/61
[2016-10-19 05:33] VITALS: BP 127/70
[2016-10-19 07:56] LABS: BASOPHILS 0.1 % (0.0-2.0); EOSINOPHILS 1.7 % (0-7); HEMOGLOBIN 10.5 g/dL (12-16); IMMATURE GRANULOCYTES 1.2 % (0-5); LYMPHOCYTES 9.2 % (15-50); MCH 28.2 pg (26.0-34.0); MCHC 31.8 g/dL (31.0-37.0); MCV 88.5 fL (80.0-100.0); MEAN PLATELET VOLUME 9.1 fL (7.4-10.4); MONOCYTES 10.2 % (2-11); NEUTROPHILS 77.6 % (40-80); PLATELET COUNT 317 10x3/uL (130-400); RBC 3.73 10x6/uL (4.00-5.40); RDW 16.8 % (11.5-14.5); WBC 13.9 10x3/uL (4.8-10.8)
[2016-10-19 08:17] LABS: ALBUMIN 1.6 g/dL (3.4-5.0); ALKALINE PHOSPHATASE 63 U/L (46-116); ALT (SGPT) 20 U/L (10-68); BILIRUBIN - TOTAL 0.33 mg/dL (0.2-1.3); CALC OSMOLALITY 278 mosm/kg (275-300); CALCIUM 8.1 mg/dL (8.5-10.1); CARBON DIOXIDE 30.1 mmol/L (21.0-32.0); CHLORIDE - SERUM 104 mmol/L (98-107); CREATININE - SERUM 0.7 mg/dL (0.6-1.3); GLUCOSE 141 mg/dL (74-106); POTASSIUM - SERUM 4.4 mmol/L (3.5-5.1); PROTEIN - SERUM 5.1 g/dL (6.4-8.2); SODIUM 140 mmol/L (136-145); eGFR NON AFRICAN AMERICAN > 90 mL/min (90-120)
[2016-10-19 08:20] LABS: UREA NITROGEN 6 mg/dL (7-18)
[2016-10-19 08:48] VITALS: BP 120/70
[2016-10-19 12:10] VITALS: BP 133/77
--- NOTE | 2016-10-19 14:24 | NUR ---
NG TUBE INSERTED IN LT NARE WITH GASTRIC SECRETIONS RETURN FROM SYRINGE AND CONNECTED TO INTERMITTENT SUCTION. SECURE TO NOWE WITH TAPE.
[2016-10-19 14:49] VITALS: BP 132/78
--- NOTE | 2016-10-19 19:30 | NUR ---
LYING IN BED TALKING ON PHONE, ASSESSMENT COMPLETED, NO ACUTE DISTRESS NOTED, NGT IN PLACE WITH LIT SUCTION, SR'S UP X2, CL IN REACH, WILL MONITOR
--- NOTE | 2016-10-19 20:56 | NUR ---
MEDS GIVEN PER MAR, ARACELI WELL, DENIES NEEDS, NGT CLAMPED FOR MED ABSOROPTION, SR'S UP X2, CL IN REACH
[2016-10-19 21:00] VITALS: BP 121/68
--- NOTE | 2016-10-19 23:30 | NUR ---
PRN ZOFRAN AND ATIVAN GIVEN FOR C/O NAUSEA AND ANXIETY, ARACELI WELL, WILL MONITOR
[2016-10-20 01:30] VITALS: BP 134/79
[2016-10-20 05:00] VITALS: BP 135/76
[2016-10-20 05:13] LABS: BASOPHILS 0.2 % (0.0-2.0); EOSINOPHILS 0.8 % (0-7); HEMATOCRIT 33.2 % (36.0-48.0); HEMOGLOBIN 10.6 g/dL (12-16); IMMATURE GRANULOCYTES 1.2 % (0-5); LYMPHOCYTES 8.1 % (15-50); MCH 28.4 pg (26.0-34.0); MCHC 31.9 g/dL (31.0-37.0); MEAN PLATELET VOLUME 9.5 fL (7.4-10.4); MONOCYTES 10.8 % (2-11); NEUTROPHILS 78.9 % (40-80); RBC 3.73 10x6/uL (4.00-5.40); RDW 17.1 % (11.5-14.5)
[2016-10-20 05:17] LABS: PLATELET COUNT 383 10x3/uL (130-400)
[2016-10-20 05:44] LABS: ALBUMIN 1.6 g/dL (3.4-5.0); ALKALINE PHOSPHATASE 57 U/L (46-116); BILIRUBIN - TOTAL 0.28 mg/dL (0.2-1.3); CALC OSMOLALITY 278 mosm/kg (275-300); CARBON DIOXIDE 32.5 mmol/L (21.0-32.0); CHLORIDE - SERUM 104 mmol/L (98-107); CREATININE - SERUM 0.7 mg/dL (0.6-1.3); GLUCOSE 143 mg/dL (74-106); POTASSIUM - SERUM 3.8 mmol/L (3.5-5.1); PROTEIN - SERUM 5.1 g/dL (6.4-8.2); SODIUM 140 mmol/L (136-145); UREA NITROGEN 7 mg/dL (7-18); eGFR NON AFRICAN AMERICAN > 90 mL/min (90-120)
[2016-10-20 05:49] LABS: ALT (SGPT) 14 U/L (10-68)
--- NOTE | 2016-10-20 07:00 | NUR ---
REPORT RECEIVED FROM [employer] SPECIALTY NURSE. CALL LIGHT IN REACH.
[2016-10-20 08:00] VITALS: BP 127/76
--- NOTE | 2016-10-20 09:00 | NUR ---
ASSESSMENT COMPLETED. CALL LIGHT IN REACH. WILL CONTINUE WITH PLAN OF CARE.
--- NOTE | 2016-10-20 10:19 | NUR ---
MEDS ADMINISTERED PER NGT. NGT OFF FOR 30 MINUTES TO 1 HOUR. ADVANCED NGT ABOUT 5 CM BECAUSE PATIENT IS HOLDING ON TO IT AND PULLING IT OUT. PATIENT STATES IT FEELS MUCH BETTER NOW. SHE WAS CHOKING WHEN I WAS FLUSHING NGT AT FIRST.
--- NOTE | 2016-10-20 10:40 | NUR ---
IV TUBING CHANGED PER HOSPITAL. PATIENT ALSO STATES SHE HAD A LARGE FORMED GREEN STOOL. SHE FORGOT TO MENTION THIS TO DR. MICHELE.
[2016-10-20 11:35] VITALS: BP 130/75
--- NOTE | 2016-10-20 12:20 | NUR ---
PATIENT HAS HAD A TOTAL OF 3 BMs THIS MORNING. TWO WERE LOOSE DARK STOOLS AND ONE WAS A SOFT GREENISH BLACK COLOR. INFORMED DR. MCIHELE OF THIS.
[2016-10-20 13:18] LABS: AEROBE ID Final report (())
--- NOTE | 2016-10-20 14:59 | NUR ---
PROTONIX IVP AND MAXIPIME AND IVPB.
[2016-10-20 15:24] VITALS: BP 126/72
--- NOTE | 2016-10-20 16:48 | NUR ---
INCONTINENT OF LARGE DARK BROWN STOOL WHICH WAS SOFT. PARTIAL BED BATH GIVEN AND LINENS CHANGED.
--- NOTE | 2016-10-20 18:23 | NUR ---
PEÑA SCHUMACHER IN INITIAL ASSESSMENT. NGT STILL CLAMPED WITH NO N/V. NO OTHER CHANGES IN INITIAL ASSESSMENT. CALL LIGHT IN REACH. STILL REFUSES SCDs. WILL CONTINUE WITH PLAN OF CARE.
--- NOTE | 2016-10-20 18:25 | NUR ---
NO CHANGES IN INITIAL ASSESSMENT. NGT STILL CLAMPED WITH NO N/V. NO OTHER CHANGES IN INITIAL ASSESSMENT. CALL LIGHT IN REACH. STILL REFUSES SCDs. WILL CONTINUE WITH PLAN OF CARE.
--- NOTE | 2016-10-20 19:38 | NUR ---
ASSESSMENT COMPLETED, NO ACUTE DISTRESS NOTED, NGT IN PLACE AND CLAMPED, SR'S UP X2, CL IN REACH, WILL MONITOR
[2016-10-20 21:25] VITALS: BP 120/68
--- NOTE | 2016-10-20 21:35 | NUR ---
ROUTINE MEDS GIVEN PER MAR, ARACELI WELL, CL IN REACH
--- NOTE | 2016-10-21 04:10 | NUR ---
PT UP TO BSC FOR BM, RETURNED TO BED, NG TUBE PULLED APPROX 7 INCHES, NOSE CLEANSED WITH ETOH, SKIN BARRIER APPLIED, NGT ADVANCED TO CLAMP AND SECURED TO NOSE, ARACELI WELL, CL IN REACH
[2016-10-21 05:27] LABS: BASOPHILS 0.1 % (0.0-2.0); EOSINOPHILS 0.7 % (0-7); HEMATOCRIT 30.3 % (36.0-48.0); HEMOGLOBIN 9.7 g/dL (12-16); IMMATURE GRANULOCYTES 0.5 % (0-5); MCH 28.4 pg (26.0-34.0); MCV 88.9 fL (80.0-100.0); MONOCYTES 12.7 % (2-11); PLATELET COUNT 411 10x3/uL (130-400); RBC 3.41 10x6/uL (4.00-5.40); RDW 17.7 % (11.5-14.5)
[2016-10-21 06:02] LABS: ALBUMIN 1.6 g/dL (3.4-5.0); ALKALINE PHOSPHATASE 58 U/L (46-116); CALCIUM 7.9 mg/dL (8.5-10.1); CARBON DIOXIDE 32.2 mmol/L (21.0-32.0); CHLORIDE - SERUM 106 mmol/L (98-107); CREATININE - SERUM 0.8 mg/dL (0.6-1.3); GLUCOSE 136 mg/dL (74-106); POTASSIUM - SERUM 3.4 mmol/L (3.5-5.1); PROTEIN - SERUM 5.2 g/dL (6.4-8.2); SODIUM 143 mmol/L (136-145); eGFR NON AFRICAN AMERICAN 79 mL/min (90-120)
[2016-10-21 06:03] LABS: ALT (SGPT) 20 U/L (10-68); CALC OSMOLALITY 285 mosm/kg (275-300); UREA NITROGEN 9 mg/dL (7-18)
--- NOTE | 2016-10-21 06:41 | NUR ---
10 MEQ KCL HUNG PER E. PROTOCOL, ARACELI WELL, CL IN REACH
[2016-10-21 06:50] VITALS: BP 112/62
--- NOTE | 2016-10-21 07:00 | NUR ---
REPORT RECEIVED FROM VESSEL SCRAPPER NURSE. CALL LIGHT IN REACH.
[2016-10-21 08:20] VITALS: BP 130/74
--- NOTE | 2016-10-21 09:33 | NUR ---
ASSESSMENT COMPLETED. AM MEDS ADMINISTERD. NGT PULLED WITH TIP INTACT PER MD ORDER. TOLERATED WELL. CALL LIGHT IN REACH. WILL CONTINUE WITH PLAN OF CARE.
--- NOTE | 2016-10-21 11:59 | NUR ---
LYING IN BED WITH EYES CLOSED. AROUSED TO VERBAL STIMULI. STATES NO N/V AT THIS TIME. ALSO DENIES PAIN. WILL ASK DR. MICHELE TO DC WELDER/FITTER.
[2016-10-21 12:19] VITALS: BP 126/67
--- NOTE | 2016-10-21 13:19 | NUR ---
KCL 20 MEQ IV RIDER INITIATED PER ELECTROLYTE PROTOCOL. CALL LIGHT IN REACH.
--- NOTE | 2016-10-21 14:50 | NUR ---
RT IN ROOM TO DO BREATHING TREATMENT
--- NOTE | 2016-10-21 16:05 | NUR ---
STATES SHE IS HAVING A PANIC ATTACK SO SHE IS REQUESTINH ATIVAN. ADMINISTERED IV ATIVAN PER ORDER. CALL LIGHT IN REACH.
[2016-10-21 16:14] LABS: AEROBE ID Final report (())
[2016-10-21 16:55] VITALS: BP 122/68
--- NOTE | 2016-10-21 17:20 | NUR ---
PATIENT IN LOW BARRETT POSITION RESTING QUIETLY. RESPIRATIONS EVEN AND UNLABORED. SIDE RAILS UP X2. BED IN LOW POSITION. CALL LIGHT IN REACH.
--- NOTE | 2016-10-21 18:15 | NUR ---
NO CHANGES IN INTIAL ASSESSMENT. CALL LIGHT IN REACH. STILL REFUSES SCDs. WILL CONTINUE WITH PLAN OF CARE.
--- NOTE | 2016-10-21 19:00 | NUR ---
PATIENT IN BED. HOB 20 DEGREES. AAOX4. RR EVEN AND UNLABORED. 0 S/S OF DISTRESS. DENIES PAIN AT THIS TIME. RIGHT SUBCLAVIAN PATENT WITH NO REDNESS OR SWELLING. MIDLINE INCISION ON ABD CLOSED WITH PERICO. WELL APPROXIMATED WITH NO REDNESS OR SWELLING. DRESSING OVER OLD EDGAR SITE. SCD'S IN ROOM BUT OFF. FAMILY AT BEDSIDE. SRX2. BED LOW. CALL LIGHT WITHIN REACH.
--- NOTE | 2016-10-21 20:10 | NUR ---
ATTEMPTED TWICE TO GIVE PATIENT TREATMENT. 1ST ATTEMPT-PATIENT WANTED TO VISIT WITH FAMILY MEMBER THAT WAS IN THE ROOM. 2ND ATTEMPT(15 MINS LATER)- PATIENT WAS GETTING HAIR COMB BY FAMILY MEMBER, AND TOLD ME TO WAIT UNTIL SHE WAS FINISHED.
[2016-10-21 21:03] VITALS: BP 116/67
--- NOTE | 2016-10-21 22:30 | NUR ---
ASSESSMENT COMPLETE. NIGHTTIME MED GIVEN. CHRONULAC HELD BECAUSE PATIENT IS HAVING DIARRHEA. ATIVAN GIVEN FOR ANXIETY. NO OTHER NEEDS AT THIS TIME.
[2016-10-22 00:59] VITALS: BP 110/63
[2016-10-22 04:00] VITALS: BP 106/58
--- NOTE | 2016-10-22 04:47 | NUR ---
ATIVAN GIVEN FOR ANXIETY PER ORDER.
[2016-10-22 05:27] LABS: BASOPHILS 0.1 % (0.0-2.0); EOSINOPHILS 2.2 % (0-7); HEMATOCRIT 29.7 % (36.0-48.0); HEMOGLOBIN 9.3 g/dL (12-16); IMMATURE GRANULOCYTES 0.6 % (0-5); LYMPHOCYTES 10.8 % (15-50); MCH 28.1 pg (26.0-34.0); MCHC 31.3 g/dL (31.0-37.0); MCV 89.7 fL (80.0-100.0); MEAN PLATELET VOLUME 9.2 fL (7.4-10.4); NEUTROPHILS 75.3 % (40-80); PLATELET COUNT 442 10x3/uL (130-400); RBC 3.31 10x6/uL (4.00-5.40); RDW 18.3 % (11.5-14.5); WBC 12.6 10x3/uL (4.8-10.8)
[2016-10-22 05:57] LABS: ALBUMIN 1.7 g/dL (3.4-5.0); ALKALINE PHOSPHATASE 54 U/L (46-116); ALT (SGPT) 17 U/L (10-68); BILIRUBIN - TOTAL 0.36 mg/dL (0.2-1.3); CALC OSMOLALITY 281 mosm/kg (275-300); CALCIUM 7.7 mg/dL (8.5-10.1); CARBON DIOXIDE 32.6 mmol/L (21.0-32.0); CHLORIDE - SERUM 106 mmol/L (98-107); CREATININE - SERUM 0.7 mg/dL (0.6-1.3); GLUCOSE 104 mg/dL (74-106); POTASSIUM - SERUM 3.1 mmol/L (3.5-5.1); SODIUM 142 mmol/L (136-145); UREA NITROGEN 9 mg/dL (7-18); eGFR NON AFRICAN AMERICAN > 90 mL/min (90-120)
[2016-10-22 07:59] VITALS: BP 112/62
--- NOTE | 2016-10-22 08:36 | NUR ---
AWAKE AND ALERT. ORIENTED X3. NO C/O AT THIS TIME. LUNGS ARE CLEAR BILATERALLY, NO COUGH NOTED. SKIN IS INTACT WITHOUT REDNESS EXCEPT INCISION TO MID ABDOMEN WHICH HAS CLIPS IN PLACE. DRESSING OVER OLD EDGAR SITE DRY AND INTACT. RIGHT SUBCLAVIAN PATENT WITHOUT REDNESS AT INSERTION SITE. BOWEL SOUNDS ARE VERY HYPOACTIVE. WILL MONITOR. UP TO BSC AT THIS TIME. BREAKFAST SERVED IN ROOM.
--- NOTE | 2016-10-22 09:11 | NUR ---
REQUESTED AND GIVEN 1MG MORPHINE SLOW IVP FOR C/O ABDOMINAL PAIN LEVEL 3. WILL MONITOR.
[2016-10-22] MEDS ORDERED: LEVAQUIN500 MG PO (09:42)
[2016-10-22] MEDS ORDERED: OXYCODONE HCL5 MG PO (09:42)
[2016-10-22] MEDS ORDERED: FLAGYL500 MG PO (09:42)
--- NOTE | 2016-10-22 11:41 | NUR ---
RIGHT SUBCLAVIAN D/C WITH TIP INTACT WITHOUT DIFFICULTY. PATIENT TOLERATED WELL.
--- NOTE | 2016-10-22 13:00 | NUR ---
DISCHARGE INSTRUCTIONS GIVEN BOTH VERBALLY AND WRITTEN. ALL QUESTIONS ANSWERED. PATIENT VERBALIZED UNDERSTANDING OF SAME. NEEDED PRESCRIPTIONS GIVEN TO PATIENT.
--- NOTE | 2016-10-22 13:11 | NUR ---
PT DISCHARGED HOME WITH MOTHER, TAKEN TO FRONT DOORS BY WHEELCHAIR
[2016-10-22 18:07] LABS: AEROBE ID Final report (())
[2016-10-23 18:06] LABS: AEROBE ID Final report (()); RESULT 1 Streptococcus mitis (())
[2016-10-24 18:08] LABS: AEROBE ID Final report (()); RESULT 1 Streptomyces species (())
== END 2016-10-22 14:13 | disposition home or self-care (01) | DRG 329 ==
LOC: D.ER 17:56 → D.ICU 19:56 → D.MS 19:56 → D.ICU 10-13 15:05 → D.MS 10-15 13:38
PROVIDERS: Family Medicine; Surgery; ADMIT Emergency Medicine
PROC: 0D1B0ZH Bypass Ileum to Cecum, Open Approach (ICD-10-PCS; principal; 2016-10-13 11:00)
PROC: 0D9W00Z Drainage of Peritoneum with Drainage Device, Open Approach (ICD-10-PCS; 2016-10-13 11:00)
PROC: 0D9670Z Drainage of Stomach with Drainage Device, Via Natural or Artificial Opening (ICD-10-PCS; 2016-10-19)
DX: K65.1 Peritoneal abscess (principal); E43 Unspecified severe protein-calorie malnutrition; D62 Acute posthemorrhagic anemia; Z68.1 Body mass index [BMI] 19.9 or less, adult; K50.90 Crohn's disease, unspecified, without complications; F17.203 Nicotine dependence unspecified, with withdrawal; K91.3 Postprocedural intestinal obstruction; K74.60 Unspecified cirrhosis of liver; K52.9 Noninfective gastroenteritis and colitis, unspecified; G25.81 Restless legs syndrome; M79.7 Fibromyalgia; B96.20 Unspecified Escherichia coli [E. coli] as the cause of diseases classified elsewhere; B96.1 Klebsiella pneumoniae [K. pneumoniae] as the cause of diseases classified elsewhere; Z86.19 Personal history of other infectious and parasitic diseases; Y83.8 Other surgical procedures as the cause of abnormal reaction of the patient, or of later complication, without mention of misadventure at the time of the procedure